=== PATIENT | male | born 1935 | race Two or more races ===

== ENCOUNTER → 2025-06-04 11:27 | Outpatient (REF) | payer MEDICARE, SELFPAY | LOC: MRI 11:27 | PROVIDERS: ATTENDING PHYSICIAN Physician Assistant Surgical | DX: M48.062 Spinal stenosis, lumbar region with neurogenic claudication (principal); M54.16 Radiculopathy, lumbar region; M43.16 Spondylolisthesis, lumbar region; M48.061 Spinal stenosis, lumbar region without neurogenic claudication; M54.50 Low back pain, unspecified | CPT/HCPCS: 72148 ==